=== PATIENT | female | born 1950 | race American Indian/Alaskan Native ===

== ENCOUNTER 2019-01-01 08:59 | Outpatient (CLI) | payer OTHER ==
--- NOTE | 2019-01-01 10:02 | Ultrasound Report ---
ULTRASOUND ABDOMEN, COMPLETE INDICATION: ABDOMINAL PAIN. COMPARISON: No relevant prior imaging study available. FINDINGS: Pancreas: Normal.. Abdominal Aorta: Atherosclerotic calcification. The aorta measures 2.3 cm maximum.. IVC: No significa nt abnormality. Liver: The liver measures 14.3 cm in length. No significant abnormality. Normal hepatopedal blood fl ow in the main portal vein. Gallbladder: Contracted gallbladder filled with stones. A [id number]-djmn-yayfyw complex sign.. Negative Mu rphy sign. Bile ducts: No significant abnormality. Common bile duct measures 6.2 mm. Kidneys: Right: 9.2 cm in length. No significant abnormality. Left: 9.4 cm in length. A 3.0 cm lo wer pole cyst.. Spleen: Normal. Measures 7.1 cm. Free fluid: None. Additional Findings: None. IMPRESSION: 1. Contracted gallbladder filled with stones. No signs of acute cholecystitis. 2. No signs of choledocholithiasis or pancreatitis. 3. A 3.0 cm left lower pole renal cyst. Signer Name: Mauro Jacobo MD Signed: 01/01/2019 9:58 AM Workstation Name: [id number]
== END 2019-01-01 09:00 | disposition home or self-care (01) ==
LOC: SPVWC 08:59
PROVIDERS: ATTEND Internal Medicine Gastroenterology
DX: K80.11 Calculus of gallbladder with chronic cholecystitis with obstruction (principal); I70.0 Atherosclerosis of aorta; K30 Functional dyspepsia; Z90.710 Acquired absence of both cervix and uterus
CPT/HCPCS: 76700

== ENCOUNTER 2019-01-12 09:09 | Outpatient (CLI) | payer OTHER ==
[2019-01-12] MEDS ORDERED: SINCALIDE 5 MCG VIAL IV ONE ×2 (10:50→10:55)
[2019-01-12] MEDS ORDERED: WATER FOR INJ Sterile (PF) 10 ML ONE (10:55)
--- NOTE | 2019-01-12 12:45 | Nuclear Medicine Report ---
NUCLEAR MEDICINE HEPATOBILIARY SCAN WITH CCK INDICATION: K80.20 GALLSTONES/R10.13 EPIGASTRIC PAIN. TECHNIQUE: Radiotracer: Tc-99m mebrofenin (by IV): 5 mCi. Gallbladder Stimulant: 1.37 mcg of CCK. FINDINGS: Hepatic activity: Normal. Biliary activity: Normal. Common bile duct activity noted at 24 minutes. Gallbladder activity: Noted at 45 minutes. Small bowel activity: Normal at 27 minutes. Following CCK infusion, the patient experienced new pain, nausea. The calculated gallbladder ejection fraction is 85% (normal greater than 35%). IMPRESSION: 1. No biliary obstruction. 2. Patient experienced new pain, nausea following CCK infusion. Please correlate. Thank you for the opportunity to participate in this patient's care. Signer Name: Rafael Mckeon Signed: 01/12/2019 12:41 PM Workstation Name: [id number]
== END 2019-01-12 09:10 | disposition home or self-care (01) ==
LOC: NM 09:09
PROVIDERS: ATTEND Internal Medicine Gastroenterology
DX: K80.20 Calculus of gallbladder without cholecystitis without obstruction (principal); R10.13 Epigastric pain; Z90.710 Acquired absence of both cervix and uterus
CPT/HCPCS: 78227; A9537; J2805